=== PATIENT | female | born 1960 | race Caucasian/White ===

== ENCOUNTER 2019-02-28 16:00 | Emergency (ER) | payer OTHER ==
[~2019-02-28] VITALS: Ht 165.1 cm; Wt 52.2 kg
--- NOTE | 2019-02-28 16:19 | NUR ---
ED Nurse Note: PT WALKED IN TO ER TODAY FROM HOME. AOX4. PT C/O RIGHT LOWER LEG SWELLING AND PAIN, 4/10 AT THIS TIME BUT VERY BAD LAST NIGHT. GAIT STEADY. CIRCULATION AND SENSATION INTACT, LEG NOT HOT TO TOUCH AND NO OBVIOUS SWELLING NOTED. SOME REDDNESS NOTED TO LOWER RIGHT LEG. PT DENIES HISTORY OF DVT.
--- NOTE | 2019-02-28 16:19 | NUR ---
Note [email or web address] in EDM - 02/28/19 at 1655 by RADHA ED Nurse Note: PT WALKED IN TO ER TODAY FROM HOME. AOX4. PT C/O RIGHT LOWER LEG SWELLING AND PAIN, 4/10 AT THIS TIME BUT VERY BAD LAST NIGHT. GAIT STEADY. CIRCULATION AND SENSATION INTACT, LEG NOT HOT TO TOUCH AND NO OBVIOUS SWELLING NOTED. PT DENIES ANY MEDICAL HISTORY.
[2019-02-28 16:20] VITALS: BP 152/76
--- NOTE | 2019-02-28 17:18 | NUR ---
ED Nurse Note: ULTRASOUND AT BEDSIDE.
--- NOTE | 2019-02-28 18:00 | Emergency Room Report ---
History of Present Illness General Chief Complaint: Pain Source: Patient Present Illness HPI This patient states that she noticed a burning sensation in her right lower leg. She states she also noticed some redness there. She denies pain. She denies numbness, although, she does note that at times she has sciatica that she has had for very long time. She denies fever or chills. She denies weakness. She has no other complaints. Allergies: Coded Allergies: No Known Allergies (Unverified , 02/28/19) Patient History Past Medical History: see triage record, HTN, other - sciatica Last Menstrual Period: menopause Reviewed Nursing Documentation: PMH: Agreed; PSxH: Agreed Nursing Documentation-PMH Past Medical History: No Stated History Review of Systems All Other Systems: negative except mentioned in HPI Physical Exam Vital Signs Date Time Temp Pulse Resp B/P (MAP) Pulse Ox O2 Delivery O2 Flow Rate FiO2 02/28/19 16:06 98.4 94 18 158/83 (108) 98 Room Air Sp02 EP Interpretation: reviewed, normal General Appearance: no apparent distress, alert, GCS 15, non-toxic Head: normocephalic, atraumatic Eyes: bilateral eye normal inspection, bilateral eye PERRL ENT: hearing grossly normal, normal pharynx, no angioedema, normal voice Neck: full range of motion Respiratory: chest non-tender, lungs clear, normal breath sounds, no respiratory distress, no retraction, no accessory muscle use, speaking full sentences Cardiovascular #1: regular rate, rhythm, no edema Cardiovascular #2: 2+ dorsalis pedis (R), 2+ dorsalis pedis (L) Rectal: deferred Musculoskeletal: normal inspection, back normal, gait/station normal, normal range of motion, non-tender Neurologic: alert, oriented x3, responsive, motor strength/tone normal, sensory intact, speech normal Psychiatric: judgement/insight normal, memory normal, mood/affect normal, no suicidal/homicidal ideation Skin: other - [id number] area of erythema over inferior avina. Medical Decision Making Diagnostic Impression: Primary Impression: Cellulitis ER Course This patient has an area of erythema on the anterior avina that could be an early cellulitis. I did obtain an ultrasound of the right lower extremity to assess for DVT. There is no evidence of DVT. The patient has normal pulses and I do not suspect an arterial occlusion at this time. The patient was educated to follow-up closely with her primary care physician for further evaluation and treatment. I will start the patient on a course of antibiotics. The patient is given close return precautions and follow-up instructions. CT/MRI/US Diagnostic Results CT/MRI/US Diagnostic Results : Imaging Test Ordered: US Venous doppler RLE Impression No DVT Last Vital Signs Date Time Temp Pulse Resp B/P (MAP) Pulse Ox O2 Delivery O2 Flow Rate FiO2 02/28/19 16:20 98.2 86 16 152/76 99 Room Air Status: improved Disposition: HOME, SELF-CARE Condition: Improved Scripts No Active Prescriptions or Reported Meds Mari Yusuf DO Feb 28, 2019 18:00
[2019-02-28] MEDS ORDERED: DOXYCYCLINE MO100 MG ORAL (18:22)
--- NOTE | 2019-02-28 18:27 | NUR ---
ED Nurse Note: PT LAYING PEACEFULLY IN BED IN NAD. AOX4. PRESCRIPTION AND DISCHARGE PAPERWORK EXPLAINED TO PT. PT VERBALIZES UNDERSTANDING AND ALL QUESTIONS ANSWERED. PRESCRIPTIONS AND DISCHARGE PAPERWORK GIVEN TO PT AND ID WRISTBAND REMOVED. PT WALKED OUT OF ER WITH STEADY GAIT AND ALL BELONGINGS.
[2019-02-28 18:28] VITALS: BP 142/74
--- NOTE | 2019-02-28 19:11 | Diagnostic Imaging Report ---
EXAM: US Duplex Right Lower Extremity Veins CLINICAL HISTORY: PAIN TECHNIQUE: Real-time duplex ultrasound scan of the right lower extremity veins integrating B-mode two-dimensional vascular structure, Doppler spectral analysis, color flow Doppler imaging and compression. COMPARISON: none FINDINGS: Deep veins: Unremarkable. No DVT in the visualized common femoral, femoral, proximal deep femoral or popliteal veins. The veins demonstrate normal color flow, are normally compressible, with normal phasic flow and/or augmentation response. Superficial veins: Unremarkable. No thrombus in the visualized great saphenous vein. Soft tissues: No acute findings. No popliteal cyst. IMPRESSION: Normal right lower extremity duplex venous ultrasound.
== END 2019-02-28 18:28 | disposition home or self-care (01) ==
LOC: EMR 16:21
DX: L03.115 Cellulitis of right lower limb (principal)
CPT/HCPCS: 93971; 99284